=== PATIENT | female | born 1980 | race African-American/Black ===

== ENCOUNTER 2025-01-29 15:06 | Emergency (ER) | payer OTHER ==
[~2025-01-29] VITALS: Ht 154.9 cm; Wt 91.0 kg
[2025-01-29 18:14] LABS: PLATELET COUNT (AUTO) 344 K/uL (150-450); RED BLOOD CELL COUNT(AUTO) 4.21 MIL/uL (4.00-5.20); RED CELL DISTRIBUTION WIDTH 14.9 % (11.5-14.5); WHITE BLOOD COUNT (AUTO) 11.4 K/uL (4.5-11.0)
[2025-01-29 18:28] LABS: CALCIUM, TOTAL 9.1 mg/dL (8.8-10.5); CREATININE 0.80 mg/dL (0.60-1.30); GLOMERULAR FILTR. RATE CALC > 60 mL/min (>60); GLUCOSE,RANDOM 108 mg/dL (70-110); SODIUM SERUM 138 mmol/L (136-145); UREA NITROGEN, BLOOD 10 mg/dL (7-18)
[2025-01-29 18:36] LABS: TROPONIN I-HIGH SENSITIVITY 10 ng/L (<51)
[2025-01-29 21:48] VITALS: BP 129/69; PULSE 92; RESP 18; TEMP 97.9; O2SAT 99
[2025-01-29] MEDS ORDERED: IBUP-1492 PO (21:49)
[2025-01-29] MEDS ORDERED: CYCL-448 PO (21:49)
== END 2025-01-29 22:01 | disposition home or self-care (01) ==
LOC: EMS 15:10
DX: R07.89 Other chest pain (principal); M25.512 Pain in left shoulder; M79.18 Myalgia, other site; N89.8 Other specified noninflammatory disorders of vagina; V43.52XA Car driver injured in collision with other type car in traffic accident, initial encounter; Y93.89 Activity, other specified; Y92.89 Other specified places as the place of occurrence of the external cause; Y99.8 Other external cause status
CPT/HCPCS: 71101; 80048; 84484; 84702; 85025; 93005; 99285